=== PATIENT | male | born 1970 | race African-American/Black ===

== ENCOUNTER → 2017-05-20 | Outpatient (CLI) | payer OTHER ==
[~2017-05-20] VITALS: Ht 177.8 cm; Wt 147.4 kg
[~2017-05-20] MED LIST: ADVAIR 100/501 DISK IH; AMLODIPINE BESY10 MG PO; APRESOLINE100 MG PO; BENAZEPRIL HCL40 MG PO; BYSTOLIC5 MG PO; CARISOPRODOL350 MG PO; CATAPRES0.1 MG PO; CIPRO250 MG PO; CLONIDINE HCL0.1 MG PO; Coreg PO; HYDROCHLOROTHIA25 MG PO; HYDROCHLOROTHIA50 MG PO; Hydrodiuril,Oretic,E PO; K-DUR10 ME2 PO; LABETALOL HCL200 MG PO; LISINOPRIL10 MG PO; LISINOPRIL20 MG PO; LISINOPRIL40 MG PO; LOPRESSOR50 MG PO; MODAFINIL100 MG PO; NIFEDIPINE ER60 MG PO; NORCO 5/3251 TABLET PO; NORMODYNE,TRAN200 MG; NORVASC10 MG PO; NORVASC5 MG PO; OXYCODONE HCL E40 MG PO; PRAVASTATIN SOD40 MG PO; PROVIGIL200 MG PO; VENTOLIN HFA18 GM IH; ZESTRIL40 MG PO; ZOCOR20 MG PO; Zocor PO; [UNRECOGNIZED DRUG - REMARK]
== END | disposition home or self-care (01) ==
LOC: AMB 10:21
PROC: 0TF3XZZ Fragmentation in Right Kidney Pelvis, External Approach (ICD-10-PCS; principal; 2017-05-20)
DX: N20.2 Calculus of kidney with calculus of ureter (principal); I10 Essential (primary) hypertension; G47.33 Obstructive sleep apnea (adult) (pediatric); J45.909 Unspecified asthma, uncomplicated; Z87.442 Personal history of urinary calculi; Z82.49 Family history of ischemic heart disease and other diseases of the circulatory system; Z83.3 Family history of diabetes mellitus
CPT/HCPCS: 74010; 93005; J0360; J0690; J2250; J3010

== ENCOUNTER 2017-11-09 19:10 | Inpatient (IN) | payer OTHER ==
[~2017-11-09] VITALS: Ht 175.3 cm; Wt 150.0 kg
[~2017-11-09 19:10] MED LIST changes: -NORVASC5 MG PO
[2017-11-09 19:32] LABS: HEMATOCRIT 35.6 % (38.0-50.0); HEMOGLOBIN 11.8 G/DL (12.5-16.6); MCH 29.7 PG (29.0-34.0); MCHC 33.1 G/DL (30.0-36.0); MCV 89.7 FL (86-99); PLATELET COUNT 255 K/uL (156-360); RBC DIS.WIDTH-CV 13.3 % (11.8-14.6); RBC DIS.WIDTH-SD 43.6 % (39-53); RED BLOOD COUNT 3.97 M/uL (4.00-5.50); WHITE BLOOD COUNT 10.8 K/uL (4.1-10.2)
[2017-11-09 19:44] LABS: CHLORIDE 107 mEq/L (99-109); POTASSIUM 3.7 mEq/L (3.7-5.4); SODIUM 143 mEq/L (136-147)
[2017-11-09 19:45] LABS: GLUCOSE 126 mg/dL (70-99)
[2017-11-09 19:49] LABS: CREATININE 2.3 mg/dL (0.6-1.3); GFR ESTIMATE (CALCULATED) 39 mL/min/ (58.99-99999)
[2017-11-09 19:50] LABS: UREA NITROGEN (BUN) 26 mg/dL (9-23)
[2017-11-09 19:53] LABS: TROP-I INTERPRETATION NEGATIVE; TROPONIN-I 0.06 ng/mL (0.0-0.30)
[2017-11-09] MEDS ORDERED: DICLOFENAC SODI75 MG PO (22:48)
[2017-11-09] MEDS ORDERED: NEURONTIN300 MG PO (22:49)
[2017-11-09] MEDS ORDERED: OXYCODONE HCL30 MG PO (22:51)
[2017-11-09] MEDS ORDERED: DIPROSONE 0.05%15 GM TP (22:52)
[2017-11-09 22:59] LABS: TROP-I INTERPRETATION NEGATIVE; TROPONIN-I 0.06 ng/mL (0.0-0.30)
[2017-11-10] VITALS (7 sets, daily range): BP systolic 138–166; BP diastolic 92–106
[2017-11-10 03:15] LABS: D-DIMER ELISA < 150.00 ng/mLDDU (<230)
[2017-11-10 06:14] LABS: TROP-I INTERPRETATION NEGATIVE; TROPONIN-I 0.05 ng/mL (0.0-0.30)
[2017-11-10 14:43] LABS: TROP-I INTERPRETATION NEGATIVE; TROPONIN-I 0.04 ng/mL (0.0-0.30)
[2017-11-11 00:11] VITALS: BP 108/71
[2017-11-11 09:03] LABS: HEMATOCRIT 38.1 % (38.0-50.0); HEMOGLOBIN 12.1 G/DL (12.5-16.6); MCH 29.7 PG (29.0-34.0); MCHC 31.8 G/DL (30.0-36.0); MCV 93.6 FL (86-99); PLATELET COUNT 257 K/uL (156-360); RBC DIS.WIDTH-CV 13.9 % (11.8-14.6); RBC DIS.WIDTH-SD 47.4 % (39-53); RED BLOOD COUNT 4.07 M/uL (4.00-5.50); WHITE BLOOD COUNT 10.1 K/uL (4.1-10.2)
[2017-11-11 09:34] LABS: CHLORIDE 105 MEQ/L (99-109); CREATININE 2.5 MG/DL (0.6-1.3); GFR ESTIMATE (CALCULATED) 36 mL/min/ (58.99-99999); GLUCOSE 113 mg/dL (70-99); MAGNESIUM 2.3 mg/dl (1.3-2.7); POTASSIUM 3.7 MEQ/L (3.7-5.4); SODIUM 142 MEQ/L (136-147); UREA NITROGEN (BUN) 35 mg/dL (9-23)
[2017-11-11 11:16] VITALS: BP 139/90
[2017-11-11] MEDS ORDERED: FUROSEMIDE40 MG PO (11:32)
[2017-11-11] MEDS ORDERED: SPIRONOLACTONE25 MG PO (11:32)
[2017-11-11 11:48] VITALS: BP 147/87
== END 2017-11-11 12:49 | disposition home or self-care (01) | DRG 305 ==
LOC: EME 19:10 → EDOF 22:45 → ENRESERV 22:47 → 5WEST 11-10 00:37
PROVIDERS: Hospitalist; Nurse Practitioner Acute Care
DX: I16.0 Hypertensive urgency (principal); I12.9 Hypertensive chronic kidney disease with stage 1 through stage 4 chronic kidney disease, or unspecified chronic kidney disease; N18.3 Chronic kidney disease, stage 3 (moderate); I47.2 Ventricular tachycardia; I51.7 Cardiomegaly; J44.1 Chronic obstructive pulmonary disease with (acute) exacerbation; E66.2 Morbid (severe) obesity with alveolar hypoventilation; Z68.42 Body mass index [BMI] 45.0-49.9, adult; Z82.49 Family history of ischemic heart disease and other diseases of the circulatory system; Z83.3 Family history of diabetes mellitus; Z87.442 Personal history of urinary calculi; G43.909 Migraine, unspecified, not intractable, without status migrainosus; R42 Dizziness and giddiness; R51 Headache; R60.0 Localized edema
CPT/HCPCS: 71046; 80048; 83735; 84484; 85027; 85379; 85610; 93005; 93306; 94640; 99281; 99284; G0378; J1650; J1940

== ENCOUNTER 2018-03-31 22:36 | Emergency (ER) | payer OTHER ==
[~2018-03-31] VITALS: Ht 177.8 cm; Wt 146.2 kg
[~2018-03-31 22:36] MED LIST changes: +DICLOFENAC SODI75 MG PO; +DIPROSONE 0.05%15 GM TP; +FUROSEMIDE40 MG PO; +NEURONTIN300 MG PO; +OXYCODONE HCL30 MG PO; +SPIRONOLACTONE25 MG PO
[2018-03-31 22:49] VITALS: BP 197/120
[2018-04-01] MEDS ORDERED: PREDNISONE20 MG PO (00:44)
[2018-04-01] MEDS ORDERED: VALIUM5 MG PO (00:44)
== END 2018-04-01 01:12 | disposition home or self-care (01) ==
LOC: EME 22:36
DX: M47.22 Other spondylosis with radiculopathy, cervical region (principal); M62.838 Other muscle spasm; G89.29 Other chronic pain; I10 Essential (primary) hypertension
CPT/HCPCS: 72040; 99281; 99283; J7512